=== PATIENT | male | born 1990 | race Caucasian/White ===

== ENCOUNTER 2016-10-24 13:15 | Emergency (ER) | payer OTHER ==
[~2016-10-24] VITALS: Ht 180.3 cm; Wt 93.0 kg
[2016-10-24 16:06] VITALS: BP 119/77
== END 2016-10-24 16:12 | disposition home or self-care (01) ==
LOC: EDBD 13:15 → ER 13:19
DX: N43.3 Hydrocele, unspecified (principal); N45.1 Epididymitis
CPT/HCPCS: 76870